=== PATIENT | male | born 1995 | race Caucasian/White ===

== ENCOUNTER 2018-12-25 19:36 | Emergency (ER) | payer MEDICAID, SELFPAY ==
[2018-12-25] MEDS ORDERED: Acetaminophen 500 MG TAB ONE (19:47)
[2018-12-25] MEDS ORDERED: Ibuprofen 800 MG TAB ONE (19:47)
[2018-12-25] MEDS ORDERED: Benzonatate 100 MG CAP ONE (21:19)
[2018-12-25] MEDS ORDERED: Oseltamivir 75 MG CAP ONE (21:19)
[2018-12-25] MEDS ORDERED: Dexamethasone 4 MG TAB ONE (21:19)
--- NOTE | 2018-12-25 21:24 | RAD ---
TWO VIEWS CHEST: 12/25/18 HISTORY: Cough and congestion. Fever. FINDINGS: Normal cardiac silhouette. Lungs and pleural spaces are clear. No pneumothorax or osseous abnormalit ies. IMPRESSION: No acute cardiopulmonary process. POS: [facility]
== END 2018-12-25 21:35 | disposition home or self-care (01) ==
LOC: MADERS 19:36
DX: J11.1 Influenza due to unidentified influenza virus with other respiratory manifestations (principal)
CPT/HCPCS: 71046; 87804; J8540

== ENCOUNTER 2019-05-12 09:32 | Emergency (ER) | payer SELFPAY | END 2019-05-12 10:37 | disposition home or self-care (01) | LOC: MADERS 09:32 | DX: R11.2 Nausea with vomiting, unspecified (principal); R19.7 Diarrhea, unspecified; F17.210 Nicotine dependence, cigarettes, uncomplicated; K21.9 Gastro-esophageal reflux disease without esophagitis | CPT/HCPCS: 36416; 99284 ==

== ENCOUNTER 2019-11-26 09:19 | Emergency (ER) | payer SELFPAY | END 2019-11-26 09:44 | disposition home or self-care (01) | LOC: MADERS 09:19 | DX: H81.399 Other peripheral vertigo, unspecified ear (principal); K21.9 Gastro-esophageal reflux disease without esophagitis; F17.210 Nicotine dependence, cigarettes, uncomplicated | CPT/HCPCS: 99283 ==